=== PATIENT | female | born 1945 | race Caucasian/White ===

== ENCOUNTER 2016-11-21 14:11 | Outpatient (CLI) | payer OTHER | END 2016-11-21 18:41 | disposition home or self-care (01) | LOC: SRD 14:11 | PROVIDERS: ATTEND Neurological Surgery | DX: M54.2 Cervicalgia (principal) | CPT/HCPCS: 72040-TC ==

== ENCOUNTER 2016-12-06 13:05 | Outpatient (CLI) | payer OTHER ==
[2016-12-06] MEDS ORDERED: IOHEXOL 100 ML IV ONE (13:47)
== END 2016-12-06 20:23 | disposition home or self-care (01) ==
LOC: SCT 13:05
PROVIDERS: ATTEND Otolaryngology
DX: R22.1 Localized swelling, mass and lump, neck (principal); E04.9 Nontoxic goiter, unspecified; I51.7 Cardiomegaly; M47.899 Other spondylosis, site unspecified
CPT/HCPCS: 70491; 71260; Q9967